=== PATIENT | male | born 1945 | race Caucasian/White ===

== ENCOUNTER → 2021-02-07 | Day surgery (SDC) | payer MEDICARE, BC ==
[~2021-02-07] VITALS: Ht 180.3 cm; Wt 141.5 kg
[~2021-02-07] MED LIST: ASPIRIN325 MG PO; ATORVASTATIN CA40 M1 PO; CARVEDILOL3.125 MG PO; JANUVIA100 MG PO; LANTUS100 U/ML SC; LASIX20 MG PO; LISINOPRIL5 MG PO; METFORMIN1000 MG PO; METFORMIN500 MG PO; ZETIA10 MG PO
[2021-02-07 08:22] VITALS: BP 143/59
[2021-02-07 09:18] VITALS: BP 107/53
[2021-02-07 09:30] VITALS: BP 121/62
[2021-02-07 09:40] VITALS: BP 116/67
== END | disposition home or self-care (01) ==
LOC: SDC 02-02 12:30
PROVIDERS: ATTEND Ophthalmology
DX: E11.36 Type 2 diabetes mellitus with diabetic cataract (principal); H25.812 Combined forms of age-related cataract, left eye; I10 Essential (primary) hypertension; I25.10 Atherosclerotic heart disease of native coronary artery without angina pectoris; Z95.5 Presence of coronary angioplasty implant and graft; Z79.4 Long term (current) use of insulin; Z79.82 Long term (current) use of aspirin; Z79.899 Other long term (current) drug therapy; Z98.890 Other specified postprocedural states; Z20.822 Contact with and (suspected) exposure to COVID-19

== ENCOUNTER → 2021-04-11 | Day surgery (SDC) | payer MEDICARE, BC ==
[~2021-04-11] VITALS: Ht 180.3 cm; Wt 141.5 kg
[2021-04-11 06:57] VITALS: BP 116/60
[2021-04-11 08:07] VITALS: BP 133/62
[2021-04-11 08:16] VITALS: BP 137/69
[2021-04-11 08:32] VITALS: BP 162/47
== END | disposition home or self-care (01) ==
LOC: SDC 04-06 10:15
PROVIDERS: ATTEND Ophthalmology
DX: H25.811 Combined forms of age-related cataract, right eye (principal); I10 Essential (primary) hypertension; E11.9 Type 2 diabetes mellitus without complications; I25.10 Atherosclerotic heart disease of native coronary artery without angina pectoris; I25.2 Old myocardial infarction; Z95.5 Presence of coronary angioplasty implant and graft; Z79.82 Long term (current) use of aspirin; Z79.4 Long term (current) use of insulin; Z79.899 Other long term (current) drug therapy